=== PATIENT | male | born 1970 | race Caucasian/White ===

== ENCOUNTER 2022-04-02 09:00 | Emergency (ER) | payer OTHER, SELFPAY ==
[2022-04-02] VITALS (11 sets, daily range): BP systolic 108–150; BP diastolic 69–92; PULSE 58–76; RESP 14–20; TEMP 36.8; O2SAT 96–99; BMI 30.7
--- NOTE | 2022-04-02 09:10 | DI.RAD.S_ITS ---
PROCEDURE: XR CHEST 1V INDICATIONS: Chest pain TECHNIQUE: One view of the chest was acquired. COMPARISON: None. FINDINGS: Surgical changes and devices: None. Lungs and pleura: Lungs are clear. No pleural effusions or pneumothorax. Mediastinum: Mediastinal contours appear normal. Heart size is normal. Bones and chest wall: No suspicious bony lesions. Overlying soft tissues appear unremarkable. IMPRESSION: No acute process. Dictated by: Shakir Craig M.D. on 04/02/2022 at 9:29 Approved by: Shakir Craig M.D. on 04/02/2022 at 9:29
--- NOTE | 2022-04-02 09:18 | ED.GENADULT ---
HPI - General Adult General Chief complaint: Chest Pain Stated complaint: Chest pain 2 or 3 in morning Time Seen by Provider: 04/02/22 09:09 Source: patient and family Mode of arrival: Ambulatory Limitations: no limitations History of Present Illness HPI narrative: 52-year-old male who is here for evaluation of left-sided chest discomfort. He states that it started approximately 2-3 o'clock this morning. It woke him from sleep he states that it did hurt but it was not intense enough for him to get out of bed. It has been mostly consistent since that time. Not worse with eating or movement or touching or breathing. Has never had anything like this in the past. He has had reflux disease in the past this feels somewhat different. He is also having some pressure in his back. No nausea vomiting. No headache. No problems breathing. No lower extremity swelling. He does have a history of hypertension and is taking all of his medications. Related Data Allergies Allergy/AdvReac Type Severity Reaction Status Date / Time No Known Drug Allergies Allergy Verified 04/02/22 09:24 Review of Systems Constitutional Constitutional: Reports system reviewed and no additional complaints, except as documented ENT Ears, Nose, Mouth, and Throat: Reports system reviewed and no additional complaints, except as documented Cardiovascular Cardiovascular: Reports system reviewed and no additional complaints, except as documented Respiratory Respiratory: Reports system reviewed and no additional complaints, except as documented Gastrointestinal Gastrointestinal: Reports system reviewed and no additional complaints, except as documented Musculoskeletal Musculoskeletal: Reports system reviewed and no additional complaints, except as documented Integumentary/Breasts Skin/Breast: Reports system reviewed and no additional complaints, except as documented Patient History Medical History Hypertension Social History marital status: lives independently: Yes Smoking Status: Unknown if ever smoked Exam Initial Vital Signs Initial Vital Signs: Vital Signs Temperature 98.2 F 04/02/22 09:05 Pulse Rate 73 04/02/22 09:05 Respiratory Rate 15 04/02/22 09:05 Blood Pressure 150/92 H 04/02/22 09:05 Pulse Oximetry 99 04/02/22 09:05 Oxygen Delivery Method 04/02/22 09:05 Const General: cooperative and healthy appearing [facility] Head: normal to inspection and normocephalic Resp Effort & Inspection: normal respiratory effort Auscultation: clear to auscultation bilaterally Cardio Rate: regular rate Rhythm: regular rhythm GI Inspection: normal to inspection Skin General: no rashes or lesions noted Neuro General: patient alert, patient awake, patient oriented x3 and moves all extremities Extrem General: normal to inspection and No edema Psych Appearance: grossly normal and well kempt Scores HEART Score Heart Score history: Slightly Suspicious Heart Score EKG: Non-Specific repolarization disturbance Heart Score Age: 45-64 years old Heart Score risk factors: 1-2 risk factors Heart Score troponin: < or = to normal limit Heart Score Total: 3 Course Orders Ordered: ED Orders 04/02/22 09:10 XR chest 1V Stat 04/02/22 09:22 Complete Blood Count AUTO DIFF Stat Comprehensive Metabolic Panel Stat Lipase Stat Troponin & CK Cardiac Panel Stat 04/02/22 09:23 EKG-12 Lead Stat 04/02/22 11:40 Troponin & CK Cardiac Panel Stat Vital Signs Vital signs: Vital Signs - 8 hr 04/02/22 09:05 04/02/22 09:13 04/02/22 09:16 Temperature 98.2 F Pulse Rate 73 76 71 Respiratory Rate 15 16 Blood Pressure 150/92 H Pulse Oximetry 99 97 99 Oxygen Delivery Method Room Air 04/02/22 09:16 04/02/22 09:30 04/02/22 09:30 Temperature Pulse Rate 62 Respiratory Rate 14 Blood Pressure 150/92 H 131/76 Pulse Oximetry 97 Oxygen Delivery Method 04/02/22 10:00 04/02/22 10:00 04/02/22 10:30 Temperature Pulse Rate 65 Respiratory Rate 17 Blood Pressure 119/78 111/74 Pulse Oximetry 96 Oxygen Delivery Method 04/02/22 10:30 04/02/22 11:00 04/02/22 11:00 Temperature Pulse Rate 58 L 62 Respiratory Rate 14 19 Blood Pressure 113/72 Pulse Oximetry 96 97 Oxygen Delivery Method 04/02/22 12:51 04/02/22 11:30 04/02/22 11:30 Temperature Pulse Rate 61 59 L Respiratory Rate 20 Blood Pressure 112/69 Pulse Oximetry 96 96 Oxygen Delivery Method Room Air 04/02/22 12:00 04/02/22 12:00 04/02/22 12:31 Temperature Pulse Rate 59 L 63 Respiratory Rate 17 17 Blood Pressure 108/70 Pulse Oximetry 97 96 Oxygen Delivery Method Medical Decision Making Differential Diagnosis Differential Diagnosis: ACS, pneumothorax, atypical chest pain, GI, pneumonia and others Condition is:: Well Controlled Lab Data Lab results reviewed: Yes I reviewed the patient's lab results. Result diagrams: 04/02/22 09:22 04/02/22 09:22 Labs: Lab Results 04/02/22 04/02/22 04/02/22 Range/Units 09:22 09:22 11:40 WBC 6.1 (4.5-11.0) X10^3/uL RBC 5.00 (4.5-5.9) X10^6/uL Hgb 15.4 (13.5-17.5) g/dL Hct 45.5 (41-53) % MCV 90.9 (80-100) fL MCH 30.8 (26-34) PG MCHC 33.9 (30-36) % RDW 12.9 (11.6-14.8) % Plt Count 216 (150-400) X10^3/uL Neut % (Auto) 49.1 L (50-75) % Lymph % (Auto) 28.3 (25-40) % [place] % (Auto) 8.6 (3-14) % Eos % (Auto) 13.2 H (2-4) % Baso % (Auto) 0.8 (0-2) % Neut # (Auto) 3000 (4104-7569) /uL Lymph # (Auto) 1700 (4535-5420) /uL [place] # (Auto) 500 (0-900) /uL Eos # (Auto) 800 H (0-450) /uL Baso # (Auto) 100 (0-100) /uL Sodium 139 (137-145) mmol/L Potassium 3.7 (3.4-5.1) mmol/L Chloride 101 (98-107) mmol/L Carbon Dioxide 28 (22-32) mmol/L BUN 21 H (9-20) mg/dL Creatinine 1.18 (0.66-1.25) mg/dL Estimated GFR > 60 (>60) mL/min BUN/Creatinine Ratio 17.8 (6-22) Glucose 84 (70-100) mg/dL Calcium 9.7 (8.4-10.2) mg/dL Total Bilirubin 1.1 (0.2-1.3) mg/dL AST 34 (17-59) IU/L ALT 48 (<50) IU/L Alkaline Phosphatase 65 (38-126) U/L Total Creatine Kinase 219 H 197 H (55-170) U/L CK-MB (CK-2) 2.21 1.87 (<2.37) ng/mL CK-MB (CK-2) Rel Index 1.0 L 0.9 L (1.5-5.0) % Troponin I < 0.012 < 0.012 (0.01-0.034) ng/mL Total Protein 8.0 (6.3-8.2) g/dL Albumin 4.9 (3.5-5.0) g/dL Globulin 3.1 (1.7-4.1) g/dL Albumin/Globulin Ratio 1.6 (1.0-2.8) Lipase 56 (23-300) U/L Imaging Data Chest x-ray: Radiologist's Impression: [address] [id number] XRay Report Signed Patient: Osmani Reddy MR#: [id number] : 1970 Acct:[id number] Age/Sex: 52 / M Date of Service: 04/02/22 Loc: ED Accession Number: [id number] ?? Procedure: XR chest 1V Ordering Provider: Nixon Ortiz D.O. PROCEDURE:? XR CHEST 1V ? INDICATIONS:? Chest pain ? TECHNIQUE:? One view of the chest was acquired.? ? COMPARISON:? None. ? FINDINGS:? ? Surgical changes and devices:? None.? ? Lungs and pleura:? Lungs are clear.? No pleural effusions or pneumothorax.? ? Mediastinum:? Mediastinal contours appear normal.? Heart size is normal.? ? Bones and chest wall:? No suspicious bony lesions.? Overlying soft tissues appear unremarkable.? ? IMPRESSION:? No acute process. ? ? Dictated by: Shakir Craig M.D. on 04/02/2022 at 9:29 ? ? Approved by: Shakir Craig M.D. on 04/02/2022 at 9:29 ECG Data Attestation: I personally reviewed and interpreted this ECG as follows: Interpretation: Sinus rhythm Ventricular rate is 67 Normal axis Normal QRS Nonspecific ST T wave changes MDM Narrative Medical decision making narrative: Low risk heart score. Troponins negative x2 with the 2nd being greater than 6 hours after the onset of symptoms. Chest x-ray is unremarkable. He did have a stress test 2 years ago and it was unremarkable. He does have a history of reflux and is on a PPI. I had a long discussion with him and his at bedside regarding his symptoms. We did discuss the lack of a definitive etiology however we discussed potential options to include GI/pulmonary/cardiac. Informed him that he should talk with his primary doctor about further risk stratification testing to include an outpatient stress test. Will discharge patient home with instructions to contact his primary doctor to discuss the indications for stress test. He was given strict return precautions. He expressed understanding and agreement. Discharge Plan Departure Patient Disposition: Home Clinical Impression: Atypical chest pain Instructions: DI for Atypical Chest Pain Activity Restrictions/Additional Instructions: Recommend that you talk with your primary doctor about the indications for a stress test. Continue to take all medications as directed. Return to the emergency department for any new or worsening symptoms. Referrals: Miscellaneous,[facility] [Primary Care Provider] - Stand Alone Forms: Patient Portal/API
[2022-04-02 09:30] LABS: Add Manual Diff / Slide Review NO; Basophils Absolute Auto 100 /uL (0-100); Basophils Percent Auto 0.8 % (0-2); Eosinophils Absolute Auto 800 /uL (0-450); Eosinophils Percent Auto 13.2 % (2-4); Hematocrit 45.5 % (41-53); Hemoglobin 15.4 g/dL (13.5-17.5); Lymphocytes Absolute Auto 1700 /uL (1100-4500); Lymphocytes Percent Auto 28.3 % (25-40); Mean Corpuscular HGB Conc 33.9 % (30-36); Mean Corpuscular Hemoglobin 30.8 PG (26-34); Mean Corpuscular Volume 90.9 fL (80-100); Monocytes Absolute Auto 500 /uL (0-900); Monocytes Percent Auto 8.6 % (3-14); Neutrophils Absolute Auto 3000 /uL (1500-7000); Neutrophils Percent Auto 49.1 % (50-75); Platelet Count 216 X10^3/uL (150-400); Red Cell Distribution Width 12.9 % (11.6-14.8); White Blood Cell Count 6.1 X10^3/uL (4.5-11.0)
[2022-04-02 09:44] LABS: Alanine Aminotransferase 48 IU/L (<50); Albumin 4.9 g/dL (3.5-5.0); Albumin Globulin Ratio 1.6 (1.0-2.8); Alkaline Phosphatase 65 U/L (38-126); Aspartate Aminotransferase 34 IU/L (17-59); BUN Creatinine Ratio 17.8 (6-22); Bilirubin Total 1.1 mg/dL (0.2-1.3); Blood Urea Nitrogen 21 mg/dL (9-20); Calcium 9.7 mg/dL (8.4-10.2); Carbon Dioxide 28 mmol/L (22-32); Chloride 101 mmol/L (98-107); Creatine Kinase 219 U/L (55-170); Estimated Glomerular Filt Rate > 60 mL/min (>60); Globulin 3.1 g/dL (1.7-4.1); Glucose 84 mg/dL (70-100); HEMOLYSIS < 15 (0-50); Lipase 56 U/L (23-300); Potassium 3.7 mmol/L (3.4-5.1); Sodium 139 mmol/L (137-145)
[2022-04-02 09:56] LABS: Troponin I < 0.012 ng/mL (0.01-0.034)
[2022-04-02 09:59] LABS: Creatine Kinase MB 2.21 ng/mL (<2.37)
[2022-04-02 12:00] LABS: Creatine Kinase 197 U/L (55-170)
[2022-04-02 12:13] LABS: Troponin I < 0.012 ng/mL (0.01-0.034)
[2022-04-02 12:16] LABS: CKMB % Relative Index 0.9 % (1.5-5.0); Creatine Kinase MB 1.87 ng/mL (<2.37)
== END 2022-04-02 12:54 | disposition home or self-care (01) ==
PROVIDERS: Emergency Provider Emergency Medicine
DX: R07.89 Other chest pain (principal)
CPT/HCPCS: 36415; 71045; 80053; 82550; 82553; 83690; 84484; 85025; 93005; 93010; 99283